=== PATIENT | female | born 1985 | race Caucasian/White ===

== ENCOUNTER 2020-04-21 14:01 | Emergency (ER) | payer OTHER ==
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
--- NOTE | 2020-04-21 16:11 | CT ---
CT chest Technique: Multiple axial sections were obtained from above the lung apices inferiorly through the lung bases. Intravenous contrast was utilized. Comparison: No prior chest imaging is available. Findings: Visualized upper abdominal structures shows no discrete abnormality. Bilateral breast prosthesis are noted. No inflammatory change is seen around the breast prosthesis. Both breast prosthesis are symmetric in size. No pericardial thickening is seen. Mediastinum and hilar regions show no adenopathy. No axillary adenopathy is identified. Lungs are clear with no acute parenchymal change. Bone window settings were reviewed which shows no acute osseous finding. Impression: 1. Bilateral breast prosthesis which appear within normal limits as noted above. 2. CT study of the chest shows nothing acute. Diagnostic code #2 Study was dictated in MDT
[2020-04-21] MEDS ORDERED: Iopamidol 755 MG/ML 500 ML Multipack Bottle IVPUSH STA (17:37)
== END 2020-04-21 17:20 | disposition home or self-care (01) ==
LOC: MW.ED 14:01
DX: R07.89 Other chest pain (principal); R07.2 Precordial pain; V48.3XXA Unspecified car occupant injured in noncollision transport accident in nontraffic accident, initial encounter; Y92.481 Parking lot as the place of occurrence of the external cause
CPT/HCPCS: 71260; 99284; Q9967; 99282